=== PATIENT | female | born 1970 | race Caucasian/White ===

== ENCOUNTER 2024-06-24 13:17 | Observation (INO) | payer BC ==
[2024-06-24 13:55] LABS: #Basophils 0.06 10x3/uL (0.0-0.2); %Basophils 0.5 % (0.0-1.0); %Eosinophils 0.5 % (0.0-10.0); %Lymphocytes 33.4 % (21.0-51.0); %Monocytes 9.1 % (0.0-10.0); %Neutrophils 56.1 % (42.0-75.0); Hematocrit 47.8 % (36.0-47.0); Hemoglobin 15.8 g/dL (12.0-16.0); Mean Corpuscular HGB CONC 33.1 g/dL (32.0-36.0); Mean Corpuscular Hemoglobin 26.5 pg (27.0-31.0); Mean Corpuscular Volume 80.1 fL (78.0-98.0); Mean Platelet Volume 9.7 fL (7.4-10.4); Platelet Count 358 10x3/uL (130-400); RBC Distribution Width 13.1 % (11.5-14.5); Red Blood Cell (RBC) Count 5.97 mill/uL (4.20-5.40)
[2024-06-24 13:58] LABS: Actual Bicarbonate (HCO3v) 17.5 mEq/L (22-28); Analyzer IN Cardio ER; Base Excess -6.5 mEq/L (-2.0 to +3.0); Chloride (VBG) 100 mmol/L (98-106); Hematocrit-VBG 49 % (36.0-47.0); Hemoglobin (Hb) 16.5 g/dL (11.7-16.0); Potassium (VBG) 4.18 mmol/L (3.70-5.30); Sodium 137 mmol/L (133-146); pH (venous) 7.362 (7.32-7.43)
[2024-06-24 14:10] LABS: ALT (SGPT) 21 U/L (8-55); AST (SGOT) 20 U/L (5-34); Albumin 4.6 g/dL (3.5-5.0); Alkaline Phosphatase 62 U/L (40-110); Anion Gap 19 mmol/L (10-20); BUN (Urea Nitrogen) 18 mg/dL (9.8-20.1); Bilirubin, Total 0.5 mg/dL (0.2-1.2); Calc. Creatinine Clearance 0 mL/min (70-130); Calcium 10.5 mg/dL (7.8-10.44); Carbon Dioxide 18 mmol/L (22-29); Chloride 103 mmol/L (98-107); Estimated GFR 72; Globulin 4.2 g/dL (2.4-3.5); Glucose 86 mg/dL (70-105); Potassium 4.1 mmol/L (3.5-5.1); Protein, Total 8.8 g/dL (6.0-8.3); Sodium 136 mmol/L (136-145)
[2024-06-24 14:14] LABS: Troponin I Less than 0.010 ng/mL (< 0.028)
[2024-06-24] MEDS ORDERED: Meclizine HCl 25 MG TAB ONE (14:15)
[2024-06-24] MEDS ORDERED: Metoclopramide HCl 10 MG (2 mL) VIAL ONE (14:15)
[2024-06-24] MEDS ORDERED: Aspirin Chewable 81 MG TAB ONE (16:09)
[2024-06-24] MEDS ORDERED: Labetalol HCl 100 MG/20 ML VIAL SLOW IVP PRN (16:30)
[2024-06-24] MEDS ORDERED: Senokot S 8.6-50 MG TAB PO PRN (16:34)
[2024-06-24] MEDS ORDERED: Acetaminophen 650 MG Suppository PR PRN (16:34)
[2024-06-24] MEDS ORDERED: Prochlorperazine Edisylate 10 MG in Sodium Chloride 0.9% 50 ML IVPB PRN (16:36)
[2024-06-24 19:53] VITALS: BMI 27.0
[2024-06-24] MEDS: Ondansetron PF 4 MG/2 ML Vial IVP PRN (19:58)
[2024-06-24] MEDS: Lactated Ringer's 1,000 ML IV SCH (19:58)
[2024-06-24] MEDS ORDERED: Atorvastatin Calcium 40 MG TAB PO SCH (21:00)
[2024-06-24] MEDS: Famotidine/PF 20 mg/2ml Vial SLOW IVP SCH (21:33)
[2024-06-24] MEDS: Meclizine HCl 25 MG TAB PO PRN (21:37)
[2024-06-24] MEDS: Famotidine 20 MG TAB PO SCH (21:37)
[2024-06-25 04:15] LABS: Hematocrit 36.9 % (36.0-47.0); Hemoglobin 12.2 g/dL (12.0-16.0); Mean Corpuscular HGB CONC 33.1 g/dL (32.0-36.0); Mean Corpuscular Hemoglobin 26.5 pg (27.0-31.0); Mean Corpuscular Volume 80.2 fL (78.0-98.0); Mean Platelet Volume 9.9 fL (7.4-10.4); Platelet Count 262 10x3/uL (130-400); RBC Distribution Width 13.2 % (11.5-14.5)
[2024-06-25 04:41] LABS: Anion Gap 11 mmol/L (10-20); BUN (Urea Nitrogen) 11 mg/dL (9.8-20.1); Calc. Creatinine Clearance 88 mL/min (70-130); Calcium 8.2 mg/dL (7.8-10.44); Carbon Dioxide 20 mmol/L (22-29); Cardiac Risk 3.6 (Less than 4.5); Chloride 111 mmol/L (98-107); Cholesterol 115 mg/dl (< 200 Desired); Estimated GFR 95; Glucose 84 mg/dL (70-105); HDL Cholesterol 32 mg/dL (>60 Neg Risk); LDL Cholesterol, Calculated 64 mg/dL; Sodium 138 mmol/L (136-145); Triglycerides 97 mg/dL (Less than 150)
[2024-06-25 05:02] LABS: Band 2 % (5-11); Eosinophils 2 % (0-10); Lymphocytes 44 % (21-51); Monocytes 7 % (0-10); Neutrophil 43 % (42-75); Platelet Adequacy Comment Platelets Normal; Reactive Lymphocytes 1 % (0-10)
[2024-06-25 08:37] LABS: Hemoglobin A1c 5.2 % (4.0-6.0)
[2024-06-25] MEDS: Pantoprazole 40 MG DR.TAB PO SCH (08:56)
[2024-06-25] MEDS: Aspirin 81 mg Enteric Coated Tablet PO SCH (08:56)
[2024-06-25] MEDS ORDERED: Non-Formulary Item 1 EACH (Omeprazole [Omeprazole] 20 MG Tablet.Dr) PO SCH (09:00)
[2024-06-25] MEDS: Acetaminophen 325 MG TAB PO PRN (13:13)
[2024-06-25 15:45] VITALS: BP 110/70; TEMP 97.9
[2024-06-25] MEDS ORDERED: metFORMIN XR 500 MG ER.TAB PO SCH (21:00)
== END 2024-06-25 17:03 | disposition home or self-care (01) ==
LOC: ERS 13:17 → 2SE 16:37
PROVIDERS: ADMIT Student in an Organized Health Care Education/Training Program; ATTEND Family Medicine
DX: R42 Dizziness and giddiness (principal); R11.2 Nausea with vomiting, unspecified; E83.52 Hypercalcemia; E28.2 Polycystic ovarian syndrome; D72.829 Elevated white blood cell count, unspecified; Z79.890 Hormone replacement therapy; Z79.84 Long term (current) use of oral hypoglycemic drugs; Z79.899 Other long term (current) drug therapy
CPT/HCPCS: 36415; 70450; 70551; 80048; 80053; 80061; 82805; 83036; 84484; 85025; 87428; 93005; 93880; 96374; 96375; G0378; J2405; J2765; J7120